=== PATIENT | male | born 1975 | race Caucasian/White ===

== ENCOUNTER 2018-08-02 06:03 | Emergency (ER) | payer OTHER ==
[~2018-08-02] VITALS: Ht 170.2 cm; Wt 65.8 kg
[2018-08-02 07:08] VITALS: BP 131/93
== END 2018-08-02 07:09 | disposition home or self-care (01) ==
LOC: ER 06:03
DX: L02.413 Cutaneous abscess of right upper limb (principal)

== ENCOUNTER 2018-08-08 22:00 | Emergency (ER) | payer OTHER ==
[~2018-08-08] VITALS: Ht 170.2 cm; Wt 65.8 kg
[2018-08-08 22:02] VITALS: BP 157/85
[2018-08-08] MEDS ORDERED: NEURONTIN 300300 M1 PO (22:18)
== END 2018-08-08 22:46 | disposition home or self-care (01) ==
LOC: ER 22:00
DX: Z48.01 Encounter for change or removal of surgical wound dressing (principal)